=== PATIENT | female | born 1945 | race Caucasian/White ===

== ENCOUNTER 2016-05-10 09:53 | Emergency (ER) | payer MEDICARE ==
[2016-05-10] MEDS ORDERED: Albuterol 2.5 MG/3 ML NEB.SOL* (0.083%) INH ONE (10:44)
--- NOTE | 2016-05-10 10:46 | UC ---
Respiratory Complaint HPI - HPI Summary HPI Summary: Patient has history of COPD, O2 dependant. has not used her nebulizer in a week , congestion and cough, sputum is thick and green. - History of Current Complaint Chief Complaint: UCGeneralIllness Stated Complaint: COUGH,CONGESTION Time Seen by Provider: 05/10/16 10:36 Hx Obtained From: Patient ?: No Onset/Duration: Sudden Onset, Lasting Days Timing: Constant Severity Initially: Moderate Severity Currently: Severe Pain Intensity: 7 Character: Cough: Productive Aggravating Factors: Exertion, Deep Breaths, Recumbent Position Alleviating Factors: Nothing Associated Signs And Symptoms: Positive: Dyspnea, Wheezing, URI - Risk Factors Pulmonary Embolism Risk Factors: Negative Cardiac Risk Factors: Negative Pseudomonas Risk Factors: Negative Tuberculosis Risk Factors: Negative - Allergies/Home Medications Allergies/Adverse Reactions: Allergies Allergy/AdvReac Type Severity Reaction Status Date / Time Latex Allergy Intermediate Itching Verified 01/04/14 15:59 PMH/Surg Hx/FS Hx/Imm Hx Previously Healthy: Yes Endocrine History Of: Denies: Diabetes Cardiovascular History Of: Reports: Hypertension Respiratory History Of: Reports: COPD, Asthma Cancer History Of: Denies: Breast Cancer - Surgical History Surgical History: Yes Surgery Procedure, Year, and Place: HYSTERECTOMY. TUBAL LIGATION. R EYE IMPLANT. CERVICAL DISC X 4 REMOVED, BONES ADDED, CAGE 04/2010. REPEAT CAGE- POSTERIOR, MASS RIGHT SHOULDER BLADE REMOVE. LEFT HIP REPLACEMENT - Family History Known Family History: Positive: Hypertension, Respiratory Disease - Social History Alcohol Use: None Substance Use Type: None Smoking Status (MU): Former Smoker Type: Cigarettes Have You Smoked in the Last Year: No Review of Systems Constitutional: Fatigue Skin: Negative Eyes: Negative ENT: Ear Ache Respiratory: Shortness Of Breath, Cough Cardiovascular: Negative Gastrointestinal: Negative Genitourinary: Negative Motor: Negative Neurovascular: Negative Musculoskeletal: Negative Neurological: Negative Psychological: Negative All Other Systems Reviewed And Are Negative: Yes Physical Exam Triage Information Reviewed: Yes Appearance: No Pain Distress, Ill-Appearing, Obese Vital Signs: Initial Vital Signs Temp 99.0 F 05/10/16 10:18 Pulse 67 05/10/16 10:18 Resp 16 05/10/16 10:18 BP 121/51 05/10/16 10:18 Pulse Ox 95 05/10/16 10:18 Vital Signs Reviewed: Yes Eye Exam: Normal Eyes: Positive: Conjunctiva Clear ENT: Positive: Pharyngeal erythema, TMs normal, Muffled/hoarse voice Dental Exam: Normal Neck exam: Normal Neck: Positive: Supple, Nontender, No Lymphadenopathy Respiratory: Positive: Chest non-tender, Decreased breath sounds, Rhonchi, Wheezing, Expiration, Inspiration Cardiovascular Exam: Normal Cardiovascular: Positive: RRR, No Murmur, Pulses Normal Abdominal Exam: Normal Abdomen Description: Positive: Nontender, No Organomegaly, Soft Bowel Sounds: Positive: Present Musculoskeletal Exam: Normal Musculoskeletal: Positive: Strength Intact, ROM Intact, No Edema Neurological Exam: Normal Neurological: Positive: Alert, Muscle Tone Normal Psychological Exam: Normal Skin Exam: Normal UC Diagnostic Evaluation - Laboratory O2 Sat by Pulse Oximetry: 95 Respiratory Course/Dx - Course Course Of Treatment: hx obtained, exam performed, meds reviewed, albuterol neb administered with good results, treated for bronchitis. . - Differential Dx/Diagnosis Differential Diagnosis/HQI/PQRI: Asthma, Bronchitis, CHF, Influenza, Laryngitis , Sinusitis Provider Diagnoses: COPD. bronchitis Discharge - Discharge Plan Condition: Stable Disposition: HOME Prescriptions: Albuterol 2.5MG/3ML (0.083%)* [Ventolin 2.5 MG/3 ML NEB.SUE*] 2.5 mg .SEE ORDER Q4HR PRN #1 box PRN Reason: Cough DOXYcycline CAP(*) [DOXYcycline 100MG CAP(*)] 100 mg PO BID #14 cap predniSONE TAB* [Deltasone TAB*] 40 mg PO DAILY #10 tab Patient Education Materials: Chronic Bronchitis (ED) Additional Instructions: Take the medication as prescribed, use the albuterol at least twice a day for the next few days. follow up if symptoms get worse.
[2016-05-10 11:28] VITALS: BP 123/42
== END 2016-05-10 11:28 | disposition home or self-care (01) ==
LOC: UCCORT 09:53
DX: J44.0 Chronic obstructive pulmonary disease with (acute) lower respiratory infection (principal); J20.9 Acute bronchitis, unspecified; Z96.642 Presence of left artificial hip joint; Z87.891 Personal history of nicotine dependence
CPT/HCPCS: 99213; G0463

== ENCOUNTER 2017-08-27 18:56 | Emergency (ER) | payer MEDICARE ==
--- OUTSIDE RECORDS SUMMARY | 2017-08-27 19:08 | XMS REPORT ---
:1945 External Reference #:[id number] Author Organization [facility] Address [address] [place] [address] Phone [phone] Care Team Providers Name Role Phone Shilpi Lerma MD Care Team Information Lead Electrical Engineer Unavailable Shilpi Lerma MD Primary Care Physician Unavailable Payers Type Date Identification Numbers Payment Provider Subscriber Medicare Primary Policy Number: [id number] Medicare Rosa Brito PayID: [id number] [address] [place] [address] [facility] Policy Number: [id number] [facility] Rosa Brito PayID: [id number] [address] [place] [address] Problems Description No Information Family History Date Family Member(s) Problem(s) Comments General None General asthma/allergies-father Social History Type Date Description Comments Marital Status Occupation Retired Cigarette Use Current Cigarette Smoker 1 Pack Daily Cigarette Use Used To Smoke Cigarettes But Quit. ETOH Use Drinks Alcoholic Beverages Rarely Recreational Drug Use Never Used Drugs Allergies, Adverse Reactions, Alerts Date Description Reaction Status Severity Comments 09/01/2009 Adhesives active rash 07/19/2012 sulfa active Medications Medication Date Status Form Strength Qnty SIG Indications Ordering Provider Advair Diskus 08/17/ Active Aerosol 500-50mcg/ 1unit 1 puff twice Trikha,Gi 2013 Dose s daily Erik angeles Omeprazole 09/01/ Active Capsules 40mg 30cap 1 po qd Kwame, 2009 DR belén Smith M.D. Spiriva / Active Capsules 18mcg 90cap one cap Unknown Handihaler 0000 s handihaler once a day Gabapentin / Active Tablets 600mg 240ta 1 po qid Unknown 0000 bs Hydroxyzine / Active Tablets 25mg prn Unknown HCL 0000 Albuterol / Active 2puffs qid Unknown Sulfate 0000 prn Oxygen / Active 2.5L Via Unknown 0000 NC Fluoxetine HCL / Active Capsules 40mg daily Unknown 0000 Mucinex / Active Tablets ER 600mg 1 by mouth Unknown 0000 12HR twice a day Montelukast / Active Tablets 10mg 1 by mouth Unknown Sodium 0000 every day Meloxicam / Active Tablets 15mg 1 by mouth Unknown 0000 every day Daliresp / Active Tablets 500mcg 1 by mouth Unknown 0000 every day Benzonatate / Active Capsules 100mg 1-2 every 8 Unknown 0000 hours as needed Lisinopril / Active Tablets 10mg 1 by mouth Unknown 0000 every day Levofloxacin / Active Tablets 500mg 1 tab every Unknown 0000 day x 7 days Docqlace / Active Capsules 100mg 2 a day Unknown 0000 Clobetasol / Active Cream 0.05% use twice a Unknown Propionate 0000 day Doxycycline 08/11/ Hx Capsules 100mg 14cap 1 by mouth Laz Melgar 2014 - twice a day Viola, 07/27/ MMarianne 2016 Cevimeline HCL 06/24/ Hx Capsules 30mg 30cap 1 tab bid RoseannaGi 2013 - belén angeles M.D 2016 Dermotic 02/28/ Hx Oil 0.01% 1Bott 5 gtts left Kwame 2012 - le ear bid x 2 Luis, 07/12/ prn M.D. 2014 Daliresp 08/17/ Hx Tablets 500mcg 30tab 1 tab daily RoseannaGi 2012 - belén angeles M.D 2013 Speech Therapy 09/01/ Hx dx: gayle Puente, 2009 - voice Luis, 06/27/ MMarianne 2012 Advair Diskus / Hx Aerosol 250-50mcg/ Unknown 0000 - Dose 2012 Chantix / Hx Tablets 40tab Unknown 0000 - s 2012 Omeprazole / Hx Capsules 20mg 14cap 1 po qd Unknown 0000 - DR s 2009 Citalopram / Hx Tablets 40mg Unknown Hydrobromide 0000 - 2017 Singulair / Hx Tablets 10mg 30tab 1 po qd Unknown 0000 - s 2017 Ventolin HFA / Hx Aerosol 108(90Base 1unit 2 puffs Unknown 0000 - ) mcg/ac s every 4 hrs 06/27/ as needed 2012 only Escitalopram / Hx Tablets 20mg Unknown Oxalate - 2017 Glucosamine / Hx Tablets 500-400-42 2 po qd Unknown Chondroitin 0000 - 2-83mg &MSM 2017 Levofloxacin / Hx Tablets 500mg 14tab 1 tab qd x Unknown 0000 - s 14 days 2012 Clobetasol / Hx Cream 0.05% Unknown Propionate - 2017 Proair HFA / Hx Aerosol 108(90Base 1unit 1-2 Unknown 0000 - ) mcg/Act s inhalations 08/14/ q4h prn 2017 Amoxicillin/Cl / Hx Tablets 875-125mg 20tab 1 po bid for Unknown avulanate 0000 - s 10 days Potassium 2012 Sarna / Hx Lotion 1% Unknown - 2017 Oxycodone /00/ Hx 1 po bid Unknown 0000 - 2014 Tramadol / Hx Caps ER Unknown 0000 - 24HR 2017 Vital Signs Date Vital Result Comment 08/15/2017 Weight 213.38 lb Height 66 inches 5'6" BMI (Body Mass Index) 34.4 kg/m2 BP Systolic 153 mmHg BP Diastolic 62 mmHg Heart Rate 59 /min O2 % BldC Oximetry 93 % Body Temperature 97.8 F [place] Score 7 Pain Level 0 07/28/2016 Weight 216.00 lb Height 66 inches 5'6" BMI (Body Mass Index) 34.9 kg/m2 BP Systolic 94 mmHg BP Diastolic 62 mmHg Heart Rate 82 /min O2 % BldC Oximetry 89 % Body Temperature 98.2 F 07/14/2015 Weight 214.00 lb Height 66 inches 5'6" BMI (Body Mass Index) 34.5 kg/m2 08/11/2014 Weight 222.00 lb Height 66 inches 5'6" BMI (Body Mass Index) 35.8 kg/m2 BP Systolic 126 mmHg BP Diastolic 68 mmHg Heart Rate 70 /min O2 % BldC Oximetry 91 % on 2.5L o2 via NC Body Temperature 98.5 F 11/15/2013 Weight 226.00 lb Height 66 inches 5'6" BMI (Body Mass Index) 36.5 kg/m2 BP Systolic 136 mmHg BP Diastolic 82 mmHg Heart Rate 75 /min O2 % BldC Oximetry 96 % Body Temperature 97.8 F 06/24/2013 Weight 230.00 lb Height 66 inches 5'6" BMI (Body Mass Index) 37.1 kg/m2 BP Systolic 142 mmHg BP Diastolic 82 mmHg Heart Rate 94 /min O2 % BldC Oximetry 91 % Body Temperature 98.4 F 05/03/2013 Weight 234.25 lb Height 66 inches 5'6" BMI (Body Mass Index) 37.8 kg/m2 BP Systolic 122 mmHg BP Diastolic 70 mmHg Heart Rate 81 /min O2 % BldC Oximetry 92 % Body Temperature 97.7 F 02/28/2013 Weight 236.00 lb Height 66 inches 5'6" BMI (Body Mass Index) 38.1 kg/m2 BP Systolic 120 mmHg BP Diastolic 76 mmHg Heart Rate 75 /min O2 % BldC Oximetry 94 % Body Temperature 97.4 F [place]-08/17/2012 Weight 245.00 lb Height 66 inches 5'6" BMI (Body Mass Index) 39.5 kg/m2 BP Systolic 138 mmHg BP Diastolic 70 mmHg Heart Rate 79 /min O2 % BldC Oximetry 92 % 81 with no 02 for about 4 minutes Body Temperature 97.7 F 06/27/2012 Weight 245.00 lb Height 66 inches 5'6" BMI (Body Mass Index) 39.5 kg/m2 BP Systolic 128 mmHg BP Diastolic 78 mmHg Heart Rate 74 /min O2 % BldC Oximetry 92 % wears 2.5 lpm Body Temperature 97.2 F neck 16" [place]-/09/01/2009 Weight 217.25 lb Height 65.5 inches 5'5.50" BMI (Body Mass Index) 35.6 kg/m2 BP Systolic 148 mmHg BP Diastolic 80 mmHg Heart Rate 75 /min O2 % BldC Oximetry 98 % Body Temperature 98.1 F Results Test Date Test Result H/L Range Note Order 08/11/2014 PFT With Bronchodilator <pending> Order 11/15/2013 Spirometry <pending> Arterial Blood Gas 07/22/2013 Shyam's Test Performed? YES Arterial Blood Gas pH 7.38 7.35-7.45 Arterial Blood Gas Pco2 42 mmHg 35-45 Arterial Blood Gas Po2 63 mmHg Low 80-105 ABG Hco3 25 mEq/L 22-26 ABG Base Excess -1 mEq/L -2-2 Arterial Blood Gas Type OXYGEN Arterial Blood Gas L/M 2.5 L/MIN 0-20 Arterial Blood Gas Del. N/C Arterial Blood Gas Site R.RAD.ART. Order 05/03/2013 PFT With Bronchodilator <pending> BUN/Creatinine 08/21/2012 BUN 12 mg/dL 5-23 Creatinine 0.7 mg/dL 0.5-1.4 Procedures Date CPT Code Description Status 08/11/2014 62732 Diffusing Capacity Completed 08/11/2014 00599 Plethysmography Determination Lung Volumes & Per Completed Airway Resist 08/11/2014 74360 Bronchodilation Responsiveness Spirometry Pre/Post Completed Bronchodil Adm 06/30/2014 Diabetic Foot Exam Completed 06/30/2014 Diabetic Retinal Eye Exam Completed 06/30/2014 Bone Mineral Density Test Completed 02/17/2014 Bone Mineral Density Test Completed 02/17/2014 Diabetic Retinal Eye Exam Completed 02/17/2014 Diabetic Foot Exam Completed 11/15/2013 58025 Bronchodilation Responsiveness Spirometry Pre/Post Completed Bronchodil Adm 09/27/2013 Bone Mineral Density Test Completed 09/27/2013 Diabetic Retinal Eye Exam Completed 09/27/2013 Diabetic Foot Exam Completed 05/03/2013 87681 Bronchodilation Responsiveness Spirometry Pre/Post Completed Bronchodil Adm 05/03/2013 53895 Plethysmography Determination Lung Volumes & Per Completed Airway Resist 08/15/2012 28559 Sleep Stage 4 Or More Cpap Titra Completed 07/12/2012 31954 Diffusing Capacity Completed 07/12/2012 17107 Plethysmography Determination Lung Volumes & Per Completed Airway Resist 07/12/2012 89009 Bronchodilation Responsiveness Spirometry Pre/Post Completed Bronchodil Adm 07/05/2012 22635 Sleep Staging 4Or More Para Completed 09/01/2009 68159 Laryngoscopy W/ Stroboscopy Completed Encounters Type Date Location Provider CPT E/M Dx Office Visit 08/15/2017 9:30a Main Office Rakel Ha, AMBER 77129 G47.33 Office Visit 07/28/2016 4:15p [place] [address] G47.33 J44.9 Office Visit 07/14/2015 11:30[place] [address] G47.33 J44.9 Office Visit 08/11/2014 10:30a Main Office Viola Melgar M.D. 46178 496 327.23 799.02 Office Visit 11/15/2013 3:45p Main Office Viola Melgar M.D. 30650 491.21 799.02 278.00 327.23 Office Visit 06/24/2013 10:00a Main Office Kevin Condon M.D 27819 496 327.23 441.2 793.11 527.7 Office Visit 05/03/2013 11:15a Main Office Kevin Condon M.D 57396 496 799.02 327.23 Office Visit 02/28/2013 2:45p [place] [address] 327.23 786.09 780.50 Office Visit 08/17/2012 2:50p Main Office Kevin Condon M.D 66449 496 278.00 Office Visit 07/19/2012 8:15a [place] [address] 786.09 780.50 327.23 Office Visit 06/27/2012 3:30p [place] [address] 786.09 780.50 Office Visit 09/01/2009 2:30p [place] [address] 784.40 Plan of Care No Information Available
--- OUTSIDE RECORDS SUMMARY | 2017-08-27 19:08 | XMS REPORT ---
:1945 External Reference #:[id number] Author Organization [facility] Address [address] [place] [address] Phone [phone] Care Team Providers Name Role Phone Shilpi Lerma MD Care Team Information Production Supervisor Trainee Unavailable Shilpi Lerma MD Primary Care Physician Unavailable Payers Type Date Identification Numbers Payment Provider Subscriber Medicare Primary Policy Number: [id number] Medicare Rosa Brito PayID: [id number] [address] [place] [address] [facility] Part B Policy Number: [id number] [facility] Rosa Brito PayID: [id number] [address] [place] [address] Problems Description No Information Family History Date [...] Oximetry 93 % Body Temperature 97.8 F [place] Score 7 Pain Level 0 07/28/2016 Weight [...] Oximetry 94 % Body Temperature 97.4 F [place]-08/17/2012 Weight 245.00 lb Height 66 inches 5'6" [...] lpm Body Temperature 97.2 F neck 16" [place]-/09/01/2009 Weight 217.25 lb Height 65.5 inches 5'5.50" [...] Procedures Date CPT Code Description Status 08/11/2014 99200 Diffusing Capacity Completed 08/11/2014 23664 Plethysmography Determination Lung Volumes & Per Completed Airway Resist 08/11/2014 43890 Bronchodilation Responsiveness Spirometry Pre/Post Completed Bronchodil Adm 06/30/2014 Diabetic Foot Exam Completed 06/30/2014 Diabetic Retinal Eye Exam Completed 06/30/2014 Bone Mineral Density Test Completed 02/17/2014 Bone Mineral Density Test Completed 02/17/2014 Diabetic Retinal Eye Exam Completed 02/17/2014 Diabetic Foot Exam Completed 11/15/2013 43119 Bronchodilation Responsiveness Spirometry Pre/Post Completed Bronchodil Adm 09/27/2013 Bone Mineral Density Test Completed 09/27/2013 Diabetic Retinal Eye Exam Completed 09/27/2013 Diabetic Foot Exam Completed 05/03/2013 76008 Bronchodilation Responsiveness Spirometry Pre/Post Completed Bronchodil Adm 05/03/2013 91564 Plethysmography Determination Lung Volumes & Per Completed Airway Resist 08/15/2012 49493 Sleep Stage 4 Or More Cpap Titra Completed 07/12/2012 87834 Diffusing Capacity Completed 07/12/2012 36261 Plethysmography Determination Lung Volumes & Per Completed Airway Resist 07/12/2012 57233 Bronchodilation Responsiveness Spirometry Pre/Post Completed Bronchodil Adm 07/05/2012 24270 Sleep Staging 4Or More Para Completed 09/01/2009 78092 Laryngoscopy W/ Stroboscopy Completed Encounters Type Date Location Provider CPT E/M Dx Office Visit 07/28/2016 4:15p [place] [address] G47.33 J44.9 Office Visit 07/14/2015 11:30a [place] [address] G47.33 J44.9 Office Visit 08/11/2014 10:30a Main Office Viola Melgar M.D. 64066 496 327.23 799.02 Office Visit 11/15/2013 3:45p Main Office Viola Melgar M.D. 41758 491.21 799.02 278.00 327.23 Office Visit 06/24/2013 10:00a Main Office Kevin Condon M.D 13790 496 327.23 441.2 793.11 527.7 Office Visit 05/03/2013 11:15a Main Office Kevin Condon M.D 43947 496 799.02 327.23 Office Visit 02/28/2013 2:45p [place] [address] 327.23 786.09 780.50 Office Visit 08/17/2012 2:50p Main Office Kevin Condon M.D 05708 496 278.00 Office Visit 07/19/2012 8:15a [place] [address] 786.09 780.50 327.23 Office Visit 06/27/2012 3:30p [place] [address] 786.09 780.50 Office Visit 09/01/2009 2:30p [place] [address] 784.40 Plan of Care No Information Available
[2017-08-27 19:24] VITALS: BP 120/49
[2017-08-27] MEDS ORDERED: Albuterol/Ipratropium NEB.SOL* Albuterol 2.5 MG/Ipratropium 0.5 MG 3 ML INH ONE (19:27)
--- NOTE | 2017-08-27 19:31 | UC ---
Respiratory Complaint HPI - HPI Summary HPI Summary: Pt c/o sudden onset of cough, chest congestion, sob, fever and chills last night. pt has COPD, uses supplemental O2 at home at 2.5L NC - History of Current Complaint Chief Complaint: UCRespiratory Stated Complaint: COUGH,FEVER,BODY ACHES Time Seen by Provider: 08/27/17 19:18 Hx Obtained From: Patient ?: No Onset/Duration: Sudden Onset, Still Present Timing: Constant Severity Initially: Moderate Severity Currently: Moderate Pain Intensity: 0 Character: Cough: Productive Aggravating Factors: Exertion, Deep Breaths, Recumbent Position Alleviating Factors: Nothing Associated Signs And Symptoms: Positive: Fever, Chills, Wheezing, URI - Risk Factors Pulmonary Embolism Risk Factors: Negative Cardiac Risk Factors: Hypertension, Elevated Lipids, CAD Pseudomonas Risk Factors: Chronic Lung Disease Tuberculosis Risk Factors: Negative - Allergies/Home Medications Allergies/Adverse Reactions: Allergies Allergy/AdvReac Type Severity Reaction Status Date / Time latex Allergy Itching Verified 08/27/17 19:11 Home Medications: Home Medications Benzonatate CAP* [Tessalon 100 MG CAP*] 100 mg PO TID PRN 08/27/17 [History Confirmed 08/27/17] Docusate CAP* [Colace Cap*] 100 mg PO BID 08/27/17 [History Confirmed 08/27/17] FLUoxetine CAP* [Prozac CAP*] 40 mg PO DAILY 08/27/17 [History Confirmed ] Lisinopril TAB* [Prinivil TAB 10 MG*] 10 mg PO DAILY 08/27/17 [History Confirmed 08/27/17] guaiFENesin ER TAB [Mucinex*] 600 mg PO BID 08/27/17 [History Confirmed 08/27/17 ] PMH/Surg Hx/FS Hx/Imm Hx Previously Healthy: No Endocrine History: Dyslipidemia Cardiovascular History: Cardiac Disease, Hypertension Respiratory History: COPD - Surgical History Surgical History: Yes Surgery Procedure, Year, and Place: HYSTERECTOMY. TUBAL LIGATION. R EYE IMPLANT. CERVICAL DISC X 4 REMOVED, BONES ADDED, CAGE 04/2010. REPEAT CAGE- POSTERIOR, MASS RIGHT SHOULDER BLADE REMOVE. LEFT HIP REPLACEMENT - Family History Known Family History: Positive: Hypertension, Respiratory Disease - Social History Occupation: Retired Lives: With Family Alcohol Use: None Substance Use Type: None Smoking Status (MU): Former Smoker Type: Cigarettes Have You Smoked in the Last Year: No When Did the Patient Quit Smoking/Using Tobacco: 2007 Review of Systems Constitutional: Fever, Chills, Fatigue Skin: Negative Eyes: Negative ENT: Negative Respiratory: Shortness Of Breath, Cough Cardiovascular: Negative Gastrointestinal: Negative Genitourinary: Negative Motor: Negative Neurovascular: Negative Musculoskeletal: Negative Neurological: Negative Psychological: Negative Is Patient Immunocompromised?: No All Other Systems Reviewed And Are Negative: Yes Physical Exam Triage Information Reviewed: Yes Appearance: Ill-Appearing Vital Signs: Initial Vital Signs Temp 99.5 F 08/27/17 19:11 Pulse 71 08/27/17 19:11 Resp 22 08/27/17 19:11 BP 120/49 08/27/17 19:11 Pulse Ox 93 08/27/17 19:11 Vital Signs Reviewed: Yes Eye Exam: Normal ENT Exam: Other ENT: Positive: Nasal congestion Dental Exam: Normal Neck exam: Normal Respiratory Exam: Other Respiratory: Positive: Wheezing Cardiovascular Exam: Normal Musculoskeletal Exam: Normal Neurological Exam: Normal Psychological Exam: Normal Skin Exam: Normal UC Diagnostic Evaluation - Laboratory O2 Sat by Pulse Oximetry: 93 - Radiology Radiology Interpretation Completed By: Radiologist - IMPRESSION: Respiratory Course/Dx - Differential Dx/Diagnosis Differential Diagnosis/HQI/PQRI: Exacerbation Of COPD, Other - pneumonia Provider Diagnoses: bronchitis. wheezing Discharge - Sign-Out/Discharge Documenting (check all that apply): Discharge/Admit/Transfer - Discharge Plan Condition: Stable Disposition: HOME Prescriptions: Amoxicillin/Clavulanate TAB* [Augmentin TAB 875*] 875 mg PO Q12H #20 tab Azithromycin TAB* [Zithromax TAB (Z-KOLBY) 250 mg #6 tabs] 250 mg PO DAILY #4 tab predniSONE TAB* [Deltasone 20 MG TAB*] 20 mg PO DAILY #3 tab Patient Education Materials: Acute Bronchitis (ED), Wheezing (ED) Referrals: Navya Shi [Primary Care Provider] - If Needed - Billing Disposition and Condition Condition: STABLE Disposition: Home
--- NOTE | 2017-08-27 20:02 | RAD ---
HISTORY: sob, cough, fever, hx copd COMPARISONS: January 04, 2014 VIEWS: 4: Frontal dual-energy and lateral views of the chest. FINDINGS: CARDIOMEDIASTINAL SILHOUETTE: The cardiomediastinal silhouette is normal. PADDY: The paddy are normal. PLEURA: The costophrenic angles are sharp. No pleural abnormalities are noted. LUNG PARENCHYMA: There is hyperinflation with flattening of the diaphragm and expansion of the AP diameter of the chest. There is minimal linear opacification of the lung bases. ABDOMEN: The upper abdomen is clear. There is no subphrenic gas. BONES AND SOFT TISSUES: The patient is status post spinal fusion. OTHER: None. IMPRESSION: HYPERINFLATION, CONSISTENT WITH COPD. NO ACTIVE CARDIOPULMONARY DISEASE. MINIMAL LINEAR ATELECTASIS OF THE LUNG BASES.
[2017-08-27] MEDS ORDERED: predniSONE TAB* 20 MG PO ONE (20:10)
[2017-08-27] MEDS ORDERED: Amoxicillin/Clavulanate TAB* 500 MG PO ONE (20:11)
[2017-08-27] MEDS ORDERED: Azithromycin TAB* 250 MG PO ONE (20:12)
[2017-08-27] MEDS ORDERED: Amoxicillin/Clavulanate TAB* 250 MG ONE (20:22)
== END 2017-08-27 20:28 | disposition home or self-care (01) ==
LOC: UCCORT 18:56
DX: J44.9 Chronic obstructive pulmonary disease, unspecified (principal); I10 Essential (primary) hypertension; E78.5 Hyperlipidemia, unspecified
CPT/HCPCS: 71046; 99213; A9270-GY; G0463; J7512